=== PATIENT | male | born 1995 | race Hispanic/Latino ===

== ENCOUNTER → 2022-08-24 | Outpatient (CLI) | payer SELFPAY ==
[2022-08-24 13:22] LABS: BASOPHILS % (AUTO) 0.4 % (0.0-5.0); EOSINOPHILS % (AUTO) 0.6 % (0.0-8.0); HEMATOCRIT 48.4 % (42-54); LYMPHOCYTES % (AUTO) 52.4 % (21.0-51.0); MEAN CORPUSCULAR HEMOGLOBIN 28.2 pg (27.0-33.0); MEAN CORPUSCULAR HGB CONC 32.9 g/dL (32.0-36.0); MEAN CORPUSCULAR VOLUME 85.8 fL (79-99); MONOCYTES % (AUTO) 6.6 % (3.0-13.0); PLATELET COUNT (AUTO) 400 K/uL (130-400); RED BLOOD CELL COUNT(AUTO) 5.64 MIL/uL (4.50-6.20); RED CELL DISTRIBUTION WIDTH 13.8 % (11.0-15.5)
[2022-08-24 13:40] LABS: ALBUMIN 4.6 g/dL (3.5-5.0); BILIRUBIN,DIRECT 0.2 mg/dL (0.0-0.3); TOTAL PROTEIN, SERUM 8.6 g/dL (6.0-8.3)
[2022-08-25 12:39] LABS: RAPID PLASMA REAGIN REACTIVE (NONREACTIVE)
[2022-08-25 12:52] LABS: RAPID PLASMA REAGIN TITER REACTIVE >1:16 (NONREACTIVE)
== END | disposition home or self-care (01) ==
LOC: LAB 12:36
PROVIDERS: ATTEND Internal Medicine
DX: Z01.89 Encounter for other specified special examinations (principal); Z20.2 Contact with and (suspected) exposure to infections with a predominantly sexual mode of transmission; Z68.24 Body mass index [BMI] 24.0-24.9, adult
CPT/HCPCS: 36415; 80076; 85025; 86592; 86701; 86780; 87390